=== PATIENT | female | born 1975 | race Caucasian/White ===

== ENCOUNTER 2020-10-14 14:15 | Outpatient (RCR) | payer OTHER, SELFPAY ==
[2020-09-02 14:05] VITALS: BMI 46.4
[2020-09-02 14:10] VITALS: BMI 46.4
== END 2020-12-01 14:33 | disposition home or self-care (01) ==
LOC: ANHDMC 14:15
PROVIDERS: PCP Internal Medicine; Visit Provider Internal Medicine
DX: E11.9 Type 2 diabetes mellitus without complications (principal); Z71.3 Dietary counseling and surveillance; Z71.89 Other specified counseling
CPT/HCPCS: 97802; G0108

== ENCOUNTER 2021-10-23 08:10 | Outpatient (CLI) | payer OTHER, SELFPAY ==
--- NOTE | ~2021-10-23 | MM_ITS ---
EXAMINATION: MM screening isa BI w jacques HISTORY: Screening TECHNIQUE: Craniocaudal and mediolateral oblique 3-D tomosynthesis images were obtained and synthetic 2-D images were generated. CAD analysis was submitted and interpreted. COMPARISON: 02/24/2018 BREAST PARENCHYMAL COMPOSITION: Breast composed of scattered areas of fibroglandular density. FINDINGS: There is no evidence of suspicious mass, calcification, or architectural distortion to sugg est malignancy in either breast. There has been no suspicious interval change. IMPRESSION: 1. No mammographic evidence of malignancy. 2. Recommend routine screening mammography in one year. BI-RADS Category 1: Negative Reviewed, dictated and finalized at location A. AL GEAR GENERATOR
== END 2021-10-23 08:11 | disposition home or self-care (01) ==
LOC: ANHIMG 08:17
PROVIDERS: PCP Internal Medicine; Visit Provider Obstetrics & Gynecology Gynecology
DX: Z12.31 Encounter for screening mammogram for malignant neoplasm of breast (principal)
CPT/HCPCS: 77063; 77067

== ENCOUNTER → 2022-12-09 14:39 | Outpatient (CLI) | payer OTHER, SELFPAY ==
--- NOTE | ~2022-12-09 | XR_ITS ---
EXAMINATION: XR hand LT 2V DATE: 12/09/2022 15:01 INDICATION: Left hand joint pain and swelling. TECHNIQUE: 2 views of left hand were obtained. COMPARISON: None. FINDINGS: Bone alignment is normal. No fracture. There is mild osteoarthritis of first carpal metacar pal joint. At fourth intercarpal phalangeal joint, there are erosions, severe joint space narrowing, and periostitis. There is an erosion of head of third metacarpal. There is mild osteoarthritis of sec ond metacarpophalangeal joint and second distal interphalangeal joint. IMPRESSION: 1. Inflammatory arthritis involving third and fourth metacarpophalangeal joints, consistent with psor iatic arthritis. Reviewed, dictated and finalized at location E. IMPRESSION: 1. Inflammatory arthritis involving third and fourth metacarpophalangeal joints , consistent with psoriatic arthritis.
--- NOTE | ~2022-12-09 | XR_ITS ---
EXAMINATION: XR hand RT 2V DATE: 12/09/2022 15:00 INDICATION: Right hand joint pain and swelling. TECHNIQUE: 2 views of right hand were obtained. COMPARISON: None. FINDINGS: Bone alignment is normal. No fracture. There is mild osteoarthritis of first carpometacarpa l joint. IMPRESSION: 1. Mild osteoarthritis of first carpometacarpal joint. Reviewed, dictated and finalized at location E.
--- NOTE | ~2022-12-09 | XR_ITS ---
EXAMINATION: XR foot LT 2V DATE: 12/09/2022 15:01 INDICATION: Left foot joint pain and swelling. TECHNIQUE: 2 views of left foot were obtained. COMPARISON: None. FINDINGS: Bone alignment is normal. No fracture. There is mild osteoarthritis of first metatarsophala ngeal joint. There is acro-osteolysis involving the francesco of first, third, and fourth distal phalange s. There are erosions of first interphalangeal joint and fourth distal interphalangeal joint. There i s periostitis at the first interphalangeal joint and third and fourth proximal and distal interphalan geal joints. IMPRESSION: 1. Inflammatory arthritis, most likely psoriatic arthritis. Reviewed, dictated and finalized at location E.
--- NOTE | ~2022-12-09 | XR_ITS ---
EXAMINATION: XR foot RT 2V DATE: 12/09/2022 15:00 INDICATION: Right foot joint pain and swelling. TECHNIQUE: 2 views of right foot were obtained. COMPARISON: Right foot radiographs 01/07/2018 FINDINGS: There is moderate hallux valgus. No fracture. There is mild osteoarthritis of first metatar sophalangeal joint and some of the interphalangeal joints. There are enthesophytes at the posterior a nd plantar aspects of calcaneal tuberosity. IMPRESSION: 1. Mild polyarticular osteoarthritis. 2. Moderate hallux valgus. Reviewed, dictated and finalized at location E.
== END ==
PROVIDERS: PCP Family Medicine; Visit Provider Family Medicine
DX: M79.89 Other specified soft tissue disorders (principal); M19.042 Primary osteoarthritis, left hand; M19.071 Primary osteoarthritis, right ankle and foot; M19.072 Primary osteoarthritis, left ankle and foot
CPT/HCPCS: 73120; 73620

== ENCOUNTER 2023-12-28 15:46 | Outpatient (CLI) | payer OTHER, SELFPAY ==
--- NOTE | ~2023-12-28 | MM_ITS ---
EXAMINATION: MM screening isa BI w jacques HISTORY: Screening mammogram TECHNIQUE: Craniocaudal and mediolateral oblique 3-D tomosynthesis images were obtained and synthetic 2-D images were generated. CAD analysis was submitted and interpreted. COMPARISON: 10/23/2021, 02/24/2018 bilateral screening mammogram examinations BREAST PARENCHYMAL COMPOSITION: There are scattered areas of fibroglandular density. FINDINGS: There is no evidence of suspicious mass, calcification, or architectural distortion to sugg est malignancy in either breast. There has been no suspicious interval change. IMPRESSION: 1. No mammographic evidence of malignancy. 2. Recommend routine screening mammography in one year. BI-RADS Category 1: Negative Reviewed, dictated and finalized at location B.
== END 2023-12-28 15:47 ==
PROVIDERS: PCP Obstetrics & Gynecology Gynecology; Visit Provider Obstetrics & Gynecology Gynecology
DX: Z12.31 Encounter for screening mammogram for malignant neoplasm of breast (principal)
CPT/HCPCS: 77063; 77067

== ENCOUNTER 2024-08-17 10:26 | Outpatient (CLI) | payer OTHER, SELFPAY ==
[2024-08-17 14:34] LABS: Basophils Percent Auto 0.7 % (0.2-1.2); Eosinophils Absolute Auto 0.1 K/mm3 (0-0.3); Eosinophils Percent Auto 1.5 % (0-4.4); Hematocrit 42.3 % (37.0-47.0); Hemoglobin 13.9 g/dL (12.0-15.0); Immature Granulocyte Absolute 0.01 K/mm3 (0.00-0.031); Immature Granulocyte Percent A 0.2 % (0-0.5); Lymphocytes Absolute Auto 2.02 K/mm3 (0.9-3.2); Lymphocytes Percent Auto 44.6 % (18.3-44.2); Mean Corpuscular HGB Conc 32.9 g/dl (32-36); Mean Corpuscular Hemoglobin 28.3 pg (26-34); Mean Platelet Volume 10.7 fl (7.4-10.4); Monocytes Absolute Auto 0.3 K/mm3 (0.1-0.6); Monocytes Percent Auto 6.6 % (2.6-8.5); Neutrophils Absolute Auto 2.1 K/mm3 (1.3-6.7); Neutrophils Percent Auto 46.4 % (45.5-73.1); Platelet Count Result 177 k/mm3 (150-375); Red Blood Count 4.92 M/mm3 (4.2-5.4); Red Cell Distribution Width 14.3 % (11.5-14.5); White Blood Count 4.5 K/mm3 (4.5-10.0)
[2024-08-17 15:27] LABS: Creatinine Urine 259.3 mg/dL
[2024-08-17 15:35] LABS: MALB Creatinine Ratio 19.6 mg/g (0-30); Microalbumin Urine Random 50.7 mg/L (0-16.7)
[2024-08-17 16:09] LABS: Alanine Aminotransferase 79 U/L (6-35); Albumin Level 4.2 g/dL (3.5-5.1); Alkaline Phosphatase 116 U/L (38-126); Anion Gap 4 mmol/L (4-12); Aspartate Amino Transferase 104 U/L (14-36); Bilirubin,Total 0.8 mg/dL (0.2-1.3); Blood Urea Nitrogen 10 mg/dL (7-17); Calcium 9.2 mg/dL (8.4-10.2); Carbon Dioxide 28 mmol/L (22-30); Chloride 102 mmol/L (98-107); Cholesterol 191 mg/dL (0-200); Estimated Glomerular Filt Rate > 60; Glucose 123 mg/dL (65-110); HDL Direct 74 mg/dL; Potassium 3.8 mmol/L (3.4-5.0); Sodium 134 mmol/L (137-145); Triglycerides 205 mg/dL (<150)
[2024-08-17 16:20] LABS: LDL Cholesterol Direct 66 mg/dL
== END 2024-08-17 10:27 | disposition home or self-care (01) ==
LOC: ANHGOSHLAB 10:27
PROVIDERS: PCP Family Medicine; Visit Provider Family Medicine
DX: E78.2 Mixed hyperlipidemia (principal); E11.9 Type 2 diabetes mellitus without complications; R53.83 Other fatigue; Z13.228 Encounter for screening for other metabolic disorders
CPT/HCPCS: 36415; 80053; 80061; 82043; 83036; 85025

== ENCOUNTER 2025-04-01 01:43 | Day surgery (SDC) | payer OTHER, SELFPAY ==
[2025-01-29 09:59] VITALS: BMI 46.0
--- NOTE | 2025-02-11 09:50 | SUR.PREOP ---
Patient called at 920 saying she didn't think she was cleaned out still having brown liquid stool. Discussed her going to get more laxatives and coming in later today for procedure or we could reschedule her and have her do 2 day prep. She said she would like to try doing some additional laxatives and then come in a little later today. Patient called back at 0950 and said she wanted to just reschedule and do a 2 day prep. We discussed the 2 day prep and I told her we would email her the instructions. Patient moved to Apr 01 at 1300,
[2025-03-15 12:05] VITALS: BMI 47.8
--- OUTSIDE RECORDS SUMMARY | 2025-04-01 01:45 | XMS_ITS | Encounter Summary ---
Author Organization [facility] Address [address] [place] [id number] Care Team Providers Care Senior Etl Developer Name Role Phone Kyle Edwards DO Primary Care Provider [phone] Encounter Details Date Type Department Care Team ([facility] st Contact Info) Description 03/25/2025 Results Follow-Up [facility] [place] [id number] [place] [address] Lakeisha John NP [address] [address] Urine culture Urine, clean voided Social History Tobacco Use Types Packs/Day Years Used Date Smoking Tobacco: Never AUDIT-C Answer Date Recorded Q1: How often do you have a drink containing alcohol? Monthly or less 09/17/2024 Q2: How many drinks containi ng alcohol do you have on a typical day when you are drinking? Patient does not drink Frequency of Binge Drinking Not on file 10/2024 Comments Unknown Sex and Gender Information Value Date Recorded Sex Assigned at Not on file Legal Sex Female 1:38 PM CDT Gender Identity Not on file Sexual Orientation Not on file documented as of this encounter Plan of Treatment Not on file documented as of this encounter Visit Diagnoses Not on filedocumented in this encounter Care Teams Senior Etl Developer Relationship Specialty Start Date End Date Kyle Edwards DO PCP - General Family Medicine 02/04/23 documented as of this encounter
--- OUTSIDE RECORDS SUMMARY | 2025-04-01 01:46 | XMS_ITS | Patient Health Record ---
Author Organization [facility] Address [address] [facility] [address] [place] [address] Care Team Providers Care Triple Air Valve Tester Name Role Phone Satnam Espinoza Unavailable [phone] Reason For Referral No Information Medications Medication SIG (Take, Route, Frequency, Duration) Notes Start Date End Date Status busPIRone HCl 5 MG Oral 03/02/2019 Active Levothyroxine Sodium 50 MCG Oral 03/02/2019 Active Tri-Sprintec 0.18/0.215/0.25 MG-35 MCG Oral 03/02/2019 Active LORazepam 0.5 MG Oral 03/02/2019 Ac tive Triamcinolone Acetonide 0.1% External 03/02/2019 Active Sertraline HCl 100 MG Oral 03/02/2019 Active hydrOXYzine HCl 25 MG Oral 03/02/2019 Active Lovastatin 20 MG Oral 03/02/2019 Ac tive amLODIPine Besylate 10 MG Oral 03/02/2019 Active Plan Of Treatment No Information Insurance Providers Payer Name Payer Address Payer Phone Subscriber Number Group Number Insured Name Patient Relationship to Insured Coverage Start Date Coverage End Date [employer] [address] [place] [address] [id number] THONY [id number] Self - patient is the insured
--- OUTSIDE RECORDS SUMMARY | 2025-04-01 01:46 | XMS_ITS | Clinical Summary ---
Author Organization [facility] Care Team Providers Care [employer] Radio Technician Name Role Phone Kyle Edwards DO Primary Care Provider [phone] Allergies Active Allergy Reactions Criticality Noted Date Comments Hydrocodone-Acetaminophen Vomiting Low 05/30/2023 Medications amLODIPine (NORVASC) 10 mg tablet Take 1 tablet (10 mg total) by mouth daily 3 Active lovastatin (MEVACOR) 20 mg tablet Take 1 tablet (20 mg total) by mouth daily 3 Active metFORMIN (GLUCOPHAGE) 500 mg tablet Take 1 tablet (500 mg total) by mouth 2 (two) times a day 3 Active sertraline (ZOLOFT) 100 mg tablet Take 2 tablets (200 mg total) by mouth daily 3 Active ergocalciferol (VITAMIN D) 50,000 unit capsule TAKE 1 CAPSULE BY MOUTH ONCE WEEKLY 16 capsule 4 Active methotrexate 2.5 mg tabletIndication s:Other - non-oncology Take 6 tablets (15 mg total) by mouth once a week Take Tuesday night after dinner, weekly 24 tablet 3 4 Active Mounjaro 2.5 mg/0.5 mL pen injector 0.5 mL (2.5 mg total) 4 Active folic acid (FOLVITE) 1 mg tablet Take 1 tablet (1 mg total) by mouth daily 90 tablet 1 4 Active busPIRone (BUSPAR) 5 mg tablet 5 Active lamoTRIgine (LaMICtal) 200 mg tablet Take 1 tablet (200 mg total) by mouth daily Active adalimumab-adaz (Hyrimoz,CF, Pen) 40 mg/0.4 mL pen injector Inject 40 mg under the skin every 14 (fourteen) days 2.4 mL 4 5 Active methotrexate 2.5 mg tabletIndication s:Other - non-oncology Take 6 tablets (15 mg total) by mouth once a week 72 tablet 1 5 Active folic acid (FOLVITE) 1 mg tablet Take 1 tablet (1 mg total) by mouth daily 30 tablet 3 5 Active nitrofurantoin monohydrate (MACROBID) 100 mg capsule Take 1 capsule (100 mg total) by mouth 2 (two) times a day for 5 days 10 capsule 5 03/28/20 25 Active Problems No known active problems Encounters Date Type Department Care Team Description 03/25/2025 Results Follow-Up [facility] at [address] [phone] Lakeisha John NP Urine culture Urine, clean voided 03/23/2025 4:15 PM CDT Office Visit [facility] at [address] [phone] Latasha Yancey PA Acute cystitis with hematuria (Primary Dx) 03/23/2025 2:04 PM CDT - 03/23/2025 11:59 PM CDT Hospital Encounter [address] [address] Acute cystitis with hematuria Discharge Disposition: Discharge to home or self care 02/18/2025 3:45 PM CDT Lab [facility] at [address] [phone] Psoriatic arthritis (HCC); High risk medication use 02/18/2025 3:00 PM CDT Office Visit [facility] [address] [place] [address] Medical Office Building [address] [place] [address] Crys Mendoza MD Psoriatic arthritis (HCC) (Primary Dx); High risk medication use from Last 3 Months Immunizations Immunization Administration Dates Next Due Influenza, Quadrivalent, Fiordaliza l Culture-based MDCK, Preservative Free, Antibiotic Free, Intramuscular 05/30/2023 Medical History Medical History Date Comments Diabetes (HCC) Anxiety Hypertension Hyperlipidemia Social History Tobacco Use Types Packs/Day Years Used Date Smoking Tobacco: Never Tobacco Cessation:Counseling Given: Not Answered AUDIT-C Answer Date Recorded Q1: How often [...] on file Sexual Orientation Not on file Obstetrics History Last Filed Vital Signs Vital Sign Reading Time Taken Comments Blood Pressure 144/83 03/23/2025 2:37 PM CDT Pulse 100 03/23/2025 2:37 PM CDT Temperature 36.9 C (98.5 F) 03/23/2025 2:37 PM CDT Respiratory Rate 20 03/23/2025 2:37 PM CDT Oxygen Saturation 96% 03/23/2025 2:37 PM CDT Inhaled Oxygen Concentration - - Weight 126.1 kg (278 lb) 03/23/2025 2:37 PM CDT Height 160 cm (5' 3) 02/18/2025 3:13 PM CDT Body Mass Index 49.25 02/18/2025 3:13 PM CDT Plan of Treatment Health Maintenance Due Date Last Done Comments Breast Cancer Screening-Mammogram 1976 Cervical Cancer Screening 1976 Colon Cancer Screening-Colonoscopy 1976 Depression Screening 1976 Hepatitis C Screening 1976 DTaP/Tdap/Td Vaccine (1 - Tdap) 11/05/1987 Hepatitis B Screening 1994 Regular Well Visit/Exam 18-64 1994 Pneumococcal vaccine <65 (1 of 2 - PCV) 11/05/1995 Zoster Vaccine (1 of 2) 11/05/1995 Covid-19 Vaccine ( - season) 2024 07/29/2021, 11/11/2020, 10/13/2020 Influenza Vaccine (#1) 2025 05/30/2023 Procedures Procedure Name Priority Date/Time Associated Diagnosis Comments URINE CULTURE Routine 03/23/2025 2:42 PM CDT Acute cystitis with hematuria POCT URINALYSIS DIPSTICK Routine 03/23/2025 2:05 PM CDT Acute cystitis with hematuria EGFR Routine 02/18/2025 3:43 PM CDT Psoriatic arthritis (HCC) High risk medication use DIFFERENTIAL AUTO Routine 02/18/2025 3:4 3 PM CDT Psoriatic arthritis (HCC) High risk medication use CBC WITH AUTO DIFFERENTIAL Routine 02/18/2025 3:43 PM CDT Psoriatic arthritis (HCC) High risk medication use COMPREHENSIVE METABOLIC PANEL Routine 02/18/2025 3:43 PM CDT Psoriatic arthritis (HCC) High risk medication use T-SPOT.TB Routine 02/18/2025 3:43 PM CDT Psoriatic arthritis (HCC) High risk medication use from Last 3 Months Results * (ABNORMAL) Urine culture Urine, clean voided (03/23/2025 2:42 PM CDT) Report Final Report: Greater than or equal to 100,000 colonies/mL of Escherichia coli Plus growth of clinically insignificant bacterial bisi. (.) Comment:Testing performed by : [facility], [address] [place] [address] Organism [facility] PLUS GROWTH OF CLINICALLY INSIGNIFICANT BISI. MEGGAN Urine, clean voided 03/23/2025 2:42 PM CDT 03/23/2025 8:16 PM CDT Narrative MEGGAN - 03/25/2025 8:24 AM CDT Testing performed by [facility] ([phone]) Organism Antibiotic Method Susceptibility Escherichia coli Ampicillin INTERPRETATION Susceptible Escherichia coli Cefazolin INTERPRETATION Susceptible Escherichia coli Nitrofurantoin INTERPRETATION Susceptible Escherichia coli Gentamicin INTERPRETATION Susceptible Escherichia coli Trimethoprim with Sulfamethoxazole IN TERPRETATION Susceptible Escherichia coli Meropenem INTERPRETATION Susceptible Escherichia coli Cefepime INTERPRETATION Susceptible Escherichia coli Ciprofloxacin INTERPRETATION Susceptible Escherichia coli Ceftazidime INTERPRETATION Susceptible Escherichia coli Ceftriaxone INTERPRETATION Susceptible Escherichia coli Piperacillin/Tazobactam INTERPRETATIO N Susceptible Escherichia coli Cephalexin INTERPRETATION Susceptible Escherichia coli Cefuroxime-axetil INTERPRETATION Susceptible Escherichia coli Cefdinir INTERPRETATION Susceptible Latasha VICK LAB MICROBIOLOGY - GENER AL ORDERABLES Final Result MEGGAN ESTEBAN [address] Department [place] [address] * (ABNORMAL) POCT urinalysis dipstick (03/23/2025 2:05 PM CDT) Pathologist [facility] Color, Urine, POC Yellow Clarity, ur, POC Clear Clear Glucose, ur, POC Negative Negative Bilirubin, ur, POC Negative Negative Ketones, ur, POC Negative Negative Specific [place], POC 1.025 1.003 - 1.030 Blood, ur, POC Large(A) Negative pH, ur, POC 6.0 5.0 - 8.0 Protein, ur, POC 300.(A) Negative Urobilinogen, urine, POC 1.0 0.2 - 1.0 mg/dL Nitrite, ur, POC Positive(A) Negative Leukocytes, ur, POC Trace(A) Negative Lot Number [id number] Urine 03/23/2025 2:05 PM CDT Latasha VICK POINT OF CARE TEST ORDER AMANDA Final Result * T-SPOT.TB Blood (02/18/2025 3:43 PM CDT) Pathologist [facility] T-SPOT.TB Negative SeeBelow Comment: Normal Value: Negative A negative test result does not exclude the possibility of exposure to or infection with Mycobacterium tuberculosis (M. tuberculosis). Patients with recent exposure to TB infected individuals exhibiting a negative T-SPOT.TB result should be considered for retesting within 6 weeks or if other relevant clinical symptoms indicate. Results from T-SPOT.TB testing must be used in conjunction with each individual's epidemiological history, current medical status, and results of other diagnostic evaluations. The T-SPOT.TB test is qualitative and results are reported as positive, borderline or negative, given that the test controls perform as expected. In line with the Centers for Disease Control and Prevention's 2010 recommendation to report quantitative measurements alongside the qualitative result, the laboratory provides spot counts for informational purposes only. The T-SPOT.TB test should not be interpreted as a quantitative test. Testing performed by: [facility], [address], [place] [address] T-SPOT.TB Panel A Spot Count 0 CERNER BJW Comment:Testing performed by : [facility], [address], [place] [address] T-SPOT.TB Panel B Spot Count 0 CERNER BJWCH Comment:Testing performed by : [facility], [address], [place] [address] T-SPOT.TB Negative Control Passed CERNER BJWCH Comment:Testing performed by : [facility], [address], [place] [address] T-SPOT.TB Positive Control Passed CERNER BJWCH Comment: Test Performed at: [email or web address], [employer] [address] [place] [phone] CHESTER CHAMORRO,PHD Testing performed by: [facility], [address], [place] [address] Blood 02/18/2025 3:43 PM CDT 02/18/2025 4:03 PM CDT us Crys Mendoza MD LAB MICROBIOLOGY - GENERAL ORDERABLES Final Result [facility] [address] [place] [address] * eGFR (02/18/2025 3:43 PM CDT) eGFR 84 >=60 mL/min/1. 73 m2 Comment: Interpretive Data Reference Interval Normal >/= 90 mL/min/1.73m2 Mildly decreased* 60 - 89 mL/min/1.73m2 Mildly to moderately decreased 45 - 59 mL/min/1.73m2 Moderately to severely decreased 30 - 44 mL/min/1.73m2 Severely decreased 15 - 29 mL/min/1.73m2 Kidney Failure < 15 mL/min/1.73m2 *Relative to young adult level Estimated glomerular filtration rate is determined by the 2020 CKD-EPI equation recommended by the National Kidney Foundation (A Unifying Approach to GFR Estimation: Recommendations of the NKF-ASK Task Force on Reassessing the Inclusion of Race in Diagnosing Kidney Disease, JASN 2020). The CKD-EPI equation should not be used for patients with unstable renal function and has not been validated in children and those over 70. Current interpretive data was last reviewed 2021. Testing performed by: [facility], [address] [place] [address] Blood 02/18/2025 3:43 PM CDT 02/18/2025 4:03 PM CDT Crys Mendoza MD LAB BLOOD ORDERABLES Final Result [facility] [address] [place] [address] * Differential, auto (02/18/2025 3:43 PM CDT) Neutrophil abs 1.66 1.50 - 6.50 K/cumm Comment:Testing performed by : [facility], [facility], [address] [place] [address] Imm gran abs 0.00 0.00 - 0.10 K/cumm [facility] Comment:Testing performed by : [facility], [facility], [address] [place] [address] Lymphocyte abs 2.18 0.80 - 3.30 K/cumm MEGGAN AMATO Comment:Testing performed by : [facility], [facility], [address] [place] [address] Monocyte abs 0.45 0.20 - 0.80 K/cumm CERNER BJWCH Comment:Testing performed by : [facility], [facility], [address] [place] [address] Eosinophil abs 0.08 0.00 - 0.50 K/cumm CERNER BJWCH Comment:Testing performed by : [facility], [facility], [address] [place] [address] Basophil abs 0.02 0.00 - 0.10 K/cumm CERNER BJWCH Comment:Testing performed by : [facility], [facility], [address] [place] [address] Neutrophil pct 37.7 % CERNER BJWCH Comment: Interpretive Data Percent cell count reference ranges are not reported, since discordance with absolute values may lead to misinterpretation of CBC data. Current Interpretive Data was last revised on 2017. Testing performed by: [facility], [facility], [address] [place] [address] Imm gran pct 0.0 % CERNER BJWCH Comment: Interpretive Data Percent cell count reference ranges are not reported, since discordance with absolute values may lead to misinterpretation of CBC data. Current Interpretive Data was last revised on 2017. Testing performed by: [facility], [facility], [address] [place] [address] Lymphocyte pct 49.7 % CERNER BJWCH Comment: Interpretive Data Percent cell count reference ranges are not reported, since discordance with absolute values may lead to misinterpretation of CBC data. Current Interpretive Data was last revised on 2017. Testing performed by: [facility], [facility], [address] [place] [address] Monocyte pct 10.3 % CERNER BJWCH Comment: Interpretive Data Percent cell count reference ranges are not reported, since discordance with absolute values may lead to misinterpretation of CBC data. Current Interpretive Data was last revised on 2017. Testing performed by: [facility], [facility], [address] [place] [address] Eosinophil pct 1.8 % CERNER BJWCH Comment: Interpretive Data Percent cell count reference ranges are not reported, since discordance with absolute values may lead to misinterpretation of CBC data. Current Interpretive Data was last revised on 2017. Testing performed by: [facility], [address] [place] [address] Basophil pct 0.5 % MEGGAN AMATO Comment: Interpretive Data Percent cell count reference ranges are not reported, since discordance with absolute values may lead to misinterpretation of CBC data. Current Interpretive Data was last revised on 2017. Testing performed by: [place] [address], [address] [place] [address] Blood 02/18/2025 3:43 PM CDT 02/18/2025 3:45 PM CDT us Crys Mendoza MD LAB BLOOD ORDERABLES Final Result Performing Organization Address City/State/[facility] Co de Phone Number MEGGAN AMATO [address] [facility]. [place] [address] * (ABNORMAL) CBC with auto differential (02/18/2025 3:43 PM CDT) WBC 4.39 3.80 - 9.90 K/cumm Comment:Testing performed by : [address] [place] [address] Hgb 12.6 11.9 - 15.5 g/dL MEGGAN AMATO Comment:Testing performed by : [facility], [address] [place] [address] Hct 38.4 35.6 - 45.5 % MEGGAN AMATO Comment:Testing performed by : [place] [address], [address] [place] [address] Plt 139(L) 150 - 400 K/cumm MEGGAN AMATO Comment:Testing performed by : [place] [address], [address] [place] [address] MPV 10.2 9.1 - 12.3 fL CERNER BJWCH Comment:Testing performed by : [facility], [facility], [address] [place] [address] RBC 4.65 3.90 - 5.20 M/cumm CERNER BJWCH Comment:Testing performed by : [facility], [facility], [address] [place] [address] MCV 82.6 81.3 - 96.4 fL CERNER BJWCH Comment:Testing performed by : [place] [address], [address] [place] [address] MCH 27.1 27.1 - 33.3 pg CERNER BJWCH Comment:Testing performed by : [facility], [facility], [address] [place] [address] MCHC 32.8 32.3 - 35.7 g/dL CERNER BJWCH Comment:Testing performed by : [place] [address], [address] [place] [address] RDW CV 13.1 11.1 - 14.9 % CERNER BJWCH Comment:Testing performed by : [place] [address], [address] [place] [address] RDW SD 39.2 35.7 - 48.1 fL CERNER BJWCH Comment:Testing performed by : [place] [address], [address] [place] [address] ANC Prelim 1.66 1.50 - 6.50 K/cumm CERNER BJWCH Comment: Interpretive Data The rapid ANC is a preliminary automated count and may vary from the final ANC (Neut Abs) reported in the WBC differential that follows. Current interpretive data was last revised 2024. Testing performed by: [facility], [address] [place] [address] Blood 02/18/2025 3:43 PM CDT 02/18/2025 3:45 PM CDT us Crys Mendoza MD LAB BLOOD ORDERABLES Final Result [facility] [address] [place] [address] * Comprehensive metabolic panel (02/18/2025 3:43 PM CDT) Sodium 136 135 - 145 mmol/L Comment:Testing performed by : [facility], [address], [place] [address] Potassium, pl 3.9 3.3 - 4.9 mmol/L CERMARK BJWCH Comment:Testing performed by : [facility], [address], [place] [address] Chloride 100 97 - 110 mmol/L CERMARK BJCH Comment:Testing performed by : [facility], [address], [place] [address] CO2 24 22 - 32 mmol/L CERMARK BJWCH Comment:Testing performed by : [facility], [address], [place] [address] Anion gap 12 2 - 15 mmol/L CERMARK BJCH Comment:Testing performed by : [facility], [address], [place] [address] BUN 10 6 - 25 mg/dL CERMARK BJWCH Comment:Testing performed by : [facility], [address], [place] [address] Creatinine 0.85 0.60 - 1.10 mg/dL CERNER BJWCH Comment:Testing performed by : [facility], [address], [place] [address] Glucose 94 70 - 199 mg/dL CERNER BJWCH Comment: Interpretive Data Fasting glucose >/= 126 mg/dl is diagnostic for diabetes. Fasting is defined as no caloric intake for at least 8 hours. Fasting glucose between 100 mg/dl to 125 mg/dl is diagnostic of prediabetes. In a patient with classic symptoms of hyperglycemia or hyperglycemic crisis, a random glucose >/= 200 mg/dl is diagnostic for diabetes. In the absence of unequivocal hyperglycemia, results should be confirmed by repeat testing. The classification and Diagnosis of Diabetes Diabetes Care 2022; 46: S19-S40. Current interpretive data was last revised 2022. Testing performed by: [facility], [address], [place] [address] Calcium 9.0 8.5 - 10.3 mg/dL CERNER BJWCH Comment:Testing performed by : [facility], [address], [place] [address] Bilirubin, total 0.2 0.1 - 1.2 mg/dL CERNER BJWCH Comment:Testing performed by : [facility], [address], [place] [address] Protein, pl 7.1 6.5 - 8.5 g/dL CERNER BJWCH Comment:Testing performed by : [facility], [address], [place] [address] Albumin 3.7 3.5 - 5.0 g/dL CERNER BJWCH Comment:Testing performed by : [facility], [address], [place] [address] Alk phos 120 40 - 130 Units/L CERNER BJWCH Comment:Testing performed by : [facility], [address], [place] [address] ALT 30 7 - 45 Units/L CERNER BJWCH Comment:Testing performed by : [facility], [address], [place] [address] AST 38 10 - 45 Units/L CERNER BJWCH Comment:Testing performed by : [facility], [address], [place] [address] Blood 02/18/2025 3:43 PM CDT 02/18/2025 4:03 PM CDT us Crys Mendoza MD LAB BLOOD ORDERABLES Final Result MEGGAN [facility] [address] [place] [address] from Last 3 Months Insurance Care Teams [employer] Radio Techn[employer] Relationship Specialty Start Date End Date Kyle Edwards DO PCP - General Family Medicine 02/04/23
[2025-04-01 11:51] VITALS: BMI 48.3
[2025-04-01 11:56] LABS: BEDSIDEPREGUCG Negative (Negative)
--- NOTE | 2025-04-01 11:57 | P.PNAN_ITS ---
Anes - Initial Pre Proc Eval Procedure: Operation Date: 04/01/25 13:00 Proposed Procedures p Screening Colonoscopy - Brian Smith MD Date/Time: 04/01/25 11:57 Surgeon: Brian Smith MD Pre Op Diagnosis: Encounter for screening for malignant neoplasm of Patient Data Age: 49 Gender: F Height: 1.6 m Weight: 123.8 kg Allergies Allergy/AdvReac Type Severity Reaction Status Date / Time acetaminophen Allergy Unknown VOMITING Verified 04/01/25 11:48 hydrocodone Allergy Unknown VOMITING Verified 04/01/25 11:48 Home Medications ?Medication ?Instructions ?Recorded ?Confirmed ?Type lancets 23 gauge (Comfort EZ #100 ea 07/15/20 10/24/24 Rx Lancets) adalimumab-adaz 40 mg/0.8 mL See Rx Instructions subcut .COMPLEX 03/02/24 01/29/25 History subcutaneous pen injector (Hyrimoz Pen) lorazepam 0.5 mg tablet 0.5 mg PO TID PRN anxiety #90 tabs 06/04/24 01/29/25 Rx amlodipine 10 mg tablet 10 mg PO DAILY #90 tabs 06/06/24 04/01/25 Rx tirzepatide 7.5 mg/0.5 mL 7.5 mg (0.5 mL) subcut WEEKLY #2 mL 07/25/24 01/29/25 Rx subcutaneous pen injector blood sugar diagnostic (Accu-Chek #100 ea 07/26/24 10/24/24 Rx Guide test strips) blood-glucose meter (Accu-Chek #1 ea 07/26/24 10/24/24 Rx Guide Glucose Meter) buspirone 10 mg tablet 10 mg PO BID #180 tabs 10/24/24 04/01/25 Rx folic acid 1 mg tablet 1 mg PO DAILY 10/24/24 04/01/25 History methotrexate 2.5 mg/mL oral 2.5 mg PO WEEKLY 10/24/24 01/29/25 History solution silver sulfadiazine 1 % topical 1 applic topical BID #85 grams 10/24/24 01/29/25 Rx cream (Silvadene) lovastatin 20 mg tablet 20 mg PO DAILY #90 tabs 11/29/24 04/01/25 Rx metformin 500 mg tablet 500 mg PO BID #180 tabs 11/29/24 04/01/25 Rx sertraline 100 mg tablet 200 mg (2 x 100 mg) PO DAILY #180 11/29/24 01/29/25 Rx tabs Laboratory Tests 04/01/25 04/01/25 11:41 11:51 POC Capillary Glucose 117 H mg/dl (65-105) POC Urine HCG, Qual Negative (Negative) Patient hx anesthesia problems: none Family hx anesthesia problems: none Results Review: All pre-operative results and documents have been reviewed as part of the pre- operative evaluation. [facility] Past Medical History Medical History (Updated 04/01/25 @ 11:57 by Regino Roman MD) Type 2 diabetes mellitus Essential (primary) hypertension Mixed hyperlipidemia Morbid obesity Social History Social History Smoking status: Never smoker Second hand tobacco smoke exposure: No Alcohol intake: never Substance use: never Substance use type: does not use Do You Feel Safe in your Home?: Yes Lack of Transportation: No Lack of Food: Never True Current Housing: I Have Housing Concerned About Future Housing: No Difficulty Paying Gas/Electric Bills: No Difficulty Paying for Meds: No Currently Unemployed: No Education: Decline to Answer Difficulty w/ Childcare or Family Care: No Living arrangements: with family Occupation/Education: occupation Gender identity (if verbalized by the patient): Female Spiritual care concerns: No Anes - Eval Final PreProcedure Day of Procedure 04/01/25 11:57 Patient weight: morbidly obese Heart: regular rate and rhythm Lungs: clear to auscultation Airway: Mallampati scale class II Neurological: alert and oriented Last oral intake: >/= 8 hours ASA classification: III Emergent: no Anesthetic plan: proceed Anesthesia type and monitoring: general GIVS and standard monitoring Results Review: All pre-operative results and documents have been reviewed as part of the pre-operative evaluation. Informed Consent: The patient's anesthetic plan and its attendant risks and benefits were discussed with the patient/family/POA. Questions were solicited and answers provided to the satisfaction of the patient/family/POA.
[2025-04-01] MEDS: LACTATED RINGERS 1,000 ML 150 ML IV CONT (12:00)
--- NOTE | 2025-04-01 12:34 | P.HP_ITS ---
H&P: HPI History of Present Illness Date/Time: 04/01/25 12:34 Chief Complaint: Screening colonoscopy Narrative: This is the patient's first colonoscopy. There are no GI symptoms and there is no family history of colorectal cancer. Review of Systems Review of Systems: All systems reviewed & are unremarkable except as noted in HPI and below PMFSH Past Medical History Medical History (Updated 04/01/25 @ 12:35 by Brian Smith MD) Type 2 diabetes mellitus Essential (primary) hypertension Mixed hyperlipidemia Morbid obesity Social History Social History Smoking status: Never smoker Second hand tobacco smoke exposure: No Alcohol intake: never Substance use: never Substance use type: does not use Do You Feel Safe in your Home?: Yes Lack of Transportation: No Lack of Food: Never True Current Housing: I Have Housing Concerned About Future Housing: No Difficulty Paying Gas/Electric Bills: No Difficulty Paying for Meds: No Currently Unemployed: No Education: Decline to Answer Difficulty w/ Childcare or Family Care: No Living arrangements: with family Occupation/Education: occupation Gender identity (if verbalized by the patient): Female Spiritual care concerns: No Meds Home Medications and Allergies Home Medications ?Medication ?Instructions ?Recorded ?Confirmed ?Type lancets 23 gauge (Comfort EZ #100 ea 07/15/20 10/24/24 Rx Lancets) adalimumab-adaz 40 mg/0.8 mL See Rx Instructions subcut .COMPLEX 03/02/24 01/29/25 History subcutaneous pen injector (Hyrimoz Pen) lorazepam 0.5 mg tablet 0.5 mg PO TID PRN anxiety #90 tabs 06/04/24 01/29/25 Rx amlodipine 10 mg tablet 10 mg PO DAILY #90 tabs 06/06/24 04/01/25 Rx tirzepatide 7.5 mg/0.5 mL 7.5 mg (0.5 mL) subcut WEEKLY #2 mL 07/25/24 01/29/25 Rx subcutaneous pen injector blood sugar diagnostic (Accu-Chek #100 ea 07/26/24 10/24/24 Rx Guide test strips) blood-glucose meter (Accu-Chek #1 ea 07/26/24 10/24/24 Rx Guide Glucose Meter) buspirone 10 mg tablet 10 mg PO BID #180 tabs 10/24/24 04/01/25 Rx folic acid 1 mg tablet 1 mg PO DAILY 10/24/24 04/01/25 History methotrexate 2.5 mg/mL oral 2.5 mg PO WEEKLY 10/24/24 01/29/25 History solution silver sulfadiazine 1 % topical 1 applic topical BID #85 grams 10/24/24 01/29/25 Rx cream (Silvadene) lovastatin 20 mg tablet 20 mg PO DAILY #90 tabs 11/29/24 04/01/25 Rx metformin 500 mg tablet 500 mg PO BID #180 tabs 11/29/24 04/01/25 Rx sertraline 100 mg tablet 200 mg (2 x 100 mg) PO DAILY #180 11/29/24 01/29/25 Rx tabs Allergies Allergy/AdvReac Type Severity Reaction Status Date / Time acetaminophen Allergy Unknown VOMITING Verified 04/01/25 11:48 hydrocodone Allergy Unknown VOMITING Verified 04/01/25 11:48 Exam Const: General: cooperative and healthy appearing Resp: Effort & Inspection: normal respiratory effort and able to speak in complete sentences Auscultation: clear to auscultation bilaterally Cardio: Rate: regular rate Rhythm: regular rhythm GI: Inspection: normal to inspection GI Palp: No No hepatosplenomegaly present Auscultation: normal bowel sounds Rectal Exam: deferred Skin: General skin exam: normal color Psych: Appearance: grossly normal Mental Status: mental status grossly no rmal Assessment and Plan Assessment and plan (1) Encounter for screening colonoscopy: Code(s): Z12.11 - Encounter for screening for malignant neoplasm of colon Status: Acute Assessment and Plan: The patient is deemed a good candidate for the procedure. Consent signed. Will proceed.
--- NOTE | 2025-04-01 13:18 | S_PTH ---
PATIENT: Michelle Bear LOC: [facility] U#:[id number] AGE/SX: 49/F ROOM: RE04/01/[address]: Brian Smith MD : 1975 BED: DIS: 04/01/2025 SPEC #: [id number] RECD: 04/01/25 13:40 STATUS: ARTEMIO REQ #: [id number] AMBROSE: 04/01/25 13:[address]: Brian Smith DEPT: [facility] Surgical RECD BY: James Rodriguez ENTERED: 04/01/25 13:41 SP TYPE: Surgical OTHR DR: Ara Carlson, Tissues: A - Colon Polypectomy Procedures: Hematoxylin and Eosin Stain Gross and Microscopic Level 4
[2025-04-01 13:19] VITALS: BP 128/78; PULSE 95; RESP 16; O2SAT 99
[2025-04-01 13:29] VITALS: BP 118/69; PULSE 88; RESP 16; O2SAT 99
[2025-04-01 13:39] VITALS: BP 128/59; PULSE 86; RESP 16; O2SAT 98
== END 2025-04-01 13:49 | disposition home or self-care (01) ==
PROVIDERS: Anesthesiology; PCP Family Medicine; Referring Provider Family Medicine; Visit Provider Internal Medicine Gastroenterology
PROC: 0DJD8ZZ Inspection of Lower Intestinal Tract, Via Natural or Artificial Opening Endoscopic (ICD-10-PCS; CPT 45378; principal; 2025-04-01 13:00)
DX: Z12.11 Encounter for screening for malignant neoplasm of colon (principal); D12.3 Benign neoplasm of transverse colon; K63.5 Polyp of colon; E11.9 Type 2 diabetes mellitus without complications; I10 Essential (primary) hypertension; E78.5 Hyperlipidemia, unspecified; E66.01 Morbid (severe) obesity due to excess calories; Z68.42 Body mass index [BMI] 45.0-49.9, adult; Z79.620 Long term (current) use of immunosuppressive biologic; Z79.85 Long-term (current) use of injectable non-insulin antidiabetic drugs; Z79.84 Long term (current) use of oral hypoglycemic drugs
CPT/HCPCS: 45385; 82948; 88305; J2003; J2704; J7120

== ENCOUNTER 2025-05-25 08:52 | Emergency (ER) | payer OTHER, SELFPAY ==
[2025-05-25 09:01] VITALS: BP 166/88; PULSE 123; RESP 16; TEMP 36.6; O2SAT 98
--- NOTE | 2025-05-25 09:16 | ED_ITS ---
HPI - URI/Sore Throat General Chief Complaint: Upper Respiratory Infection Stated Complaint: Spider Bite/Bodyaches/Fever Related Data Home Medications ?Medication ?Instructions ?Recorded ?Confirmed ?Last Taken ?Type adalimumab-adaz 40 mg/0.8 mL See Rx Instructions subcu bonnie MALLORY 03/02/24 Unknown History subcutaneous pen injector (Hyrimoz Pen) folic acid 1 mg tablet 1 mg PO DAILY 10/24/2405/2503/31/25 History methotrexate 2.5 mg/mL oral 2.5 mg PO WEEKLY 10/24/24 05/25/25 Unknown History solution Allergies Allergy/AdvReac Type Severity Reaction Status Date / Time acetaminophen Allergy Unknown VOMITING Verified 05/25/25 09:12 hydrocodone Allergy Unknown VOMITING Verified 05/25/25 09:12 [facility] Past Medical History Medical History (Updated 04/14/25 @ 22:54 by Ara Carlson DO) Type 2 diabetes mellitus Essential (primary) hypertension Mixed hyperlipidemia Morbid obesity Social History Social History Smoking status: Never smoker Second hand tobacco smoke exposure: No Alcohol intake: never Substance use: never Substance use type: does not use Do You Feel Safe in your Home?: Yes Lack of Transportation: No Lack of Food: Never True Current Housing: I Have Housing Concerned About Future Housing: No Difficulty Paying Gas/Electric Bills: No Difficulty Paying for Meds: No Currently Unemployed: No Education: Decline to Answer Difficulty w/ Childcare or Family Care: No Living arrangements: with family Occupation/Education: occupation Gender identity (if verbalized by the patient): Female Spiritual care concerns: No Course Vital Signs Vital signs: Vital Signs Temperature 97.8 F 05/25/25 09:01 Pulse Rate 123 H 05/25/25 09:01 Respiratory Rate 16 05/25/25 09:01 Blood Pressure 166/88 H 05/25/25 09:01 Pulse Oximetry 98 05/25/25 09:01 Oxygen Delivery Room Air 05/25/25 09:01 Temperature 97.8 F 05/25/25 09:01 Pulse Rate 123 H 05/25/25 09:01 Respiratory Rate 16 05/25/25 09:01 Blood Pressure 166/88 H 05/25/25 09:01 Pulse Oximetry 98 05/25/25 09:01 Oxygen Delivery Room Air 05/25/25 09:01 Discharge Plan Discharge Patient Language: Yakut Prescriptions: No Action Hyrimoz Pen 40 mg/0.8 mL pen injector See Rx Instructions subcut .COMPLEX Rx Instructions: inject two - 80 mg/0.8 mL pens on Day 1; inject one - 80 mg/0.8 mL pen on Day 15 of therapy subcut methotrexate 2.5 mg/mL solution 2.5 mg PO WEEKLY Rx Instructions: take 6 tablets once weekly folic acid 1 mg tablet 1 mg PO DAILY buspirone 10 mg tablet 10 mg PO BID Qty: 180 1RF silver sulfadiazine [Silvadene] 1 % cream 1 applic topical BID Qty: 85 0RF Patient Comments: not taking Rx Instructions: apply a 1.5 mm thickness to burn area twice daily (DME) Comfort EZ Lancets 23 gauge misc See Rx Instructions .ROUTE .MEDSUPPLY Qty: 100 4RF Rx Instructions: Use 1 lancet to check fasting glucose daily lorazepam 0.5 mg tablet 0.5 mg PO TID PRN (Reason: anxiety) Qty: 90 2RF tirzepatide 7.5 mg/0.5 mL pen injector 7.5 mg subcut WEEKLY Qty: 2 0RF Patient Comments: on hold-last took over 1 month ago (DME) blood-glucose meter [Accu-Chek Guide Glucose Meter] Mis See Rx Instructions .Route Qty: 1 0RF Rx Instructions: Use to check BS daily (DME) Accu-Chek Guide test strips Strip See Rx Instructions .Route Qty: 100 1RF Rx Instructions: Use to check BS daily lovastatin 20 mg tablet 20 mg PO DAILY Qty: 90 3RF metformin 500 mg tablet 500 mg PO BID Qty: 180 1RF sertraline 100 mg tablet 200 mg PO DAILY Qty: 180 1RF amlodipine 10 mg tablet 10 mg PO DAILY Qty: 90 1RF Follow-up/Referrals: Ara Carlson DO [Primary Care Provider, Family Practice]
--- NOTE | 2025-05-25 09:17 | ED_ITS ---
HPI - Skin/Abscess/Foreign Bdy General Chief complaint: Upper Respiratory Infection Stated complaint: Spider Bite/Bodyaches/Fever Time Seen by Provider: 05/25/25 09:18 Source: patient and RN notes reviewed Mode of arrival: ambulatory Limitations: dementia History of Present Illness HPI narrative: 49-year-old female presents concern for spider bite that she sustained . She reports she was putting injected on in she felt a bite on her right upper arm and saw spider, out of her jacket. She reports since then it is become more red, swollen, painful. She has been tired, feeling fever rash and having body aches. She has taken Tylenol. MD complaint: other (Redness) Related Data Home Medications ?Medication ?Instructions ?Recorded ?Confirmed ?Last Taken ?Type adalimumab-adaz 40 mg/0.8 mL See Rx Instructions subcu t PetarCOMPLEX 03/02/24 04/14/25 Unknown History subcutaneous pen injector (Hyrimoz Pen) folic acid 1 mg tablet 1 mg PO DAILY 10/24/2405/2503/31/25 History methotrexate 2.5 mg/mL oral 2.5 mg PO WEEKLY 10/24/24 05/25/25 Unknown History solution Allergies Allergy/AdvReac Type Severity Reaction Status Date / Time acetaminophen Allergy Unknown VOMITING Verified 05/25/25 09:12 hydrocodone Allergy Unknown VOMITING Verified 05/25/25 09:12 Review of Systems Review of Systems: CONSTITUTIONAL: Reports malaise, chills, sweats, fatigue EYES: Denies redness, or discharge. ENT: Denies rhinorrhea, congestion, swollen lips, swollen tongue CARDIOVASCULAR: Denies chest pain, palpitations, or edema. RESPIRATORY: Denies cough or dyspnea. GASTROINTESTINAL: Denies abdominal pain, nausea, vomiting SKIN: Reports redness, swelling, tenderness on the right upper arm. Denies purulent drainage, vesicles, bullae, numbness, pain beyond proportion MUSCULOSKELETAL: Denies joint pain. Reports myalgia. NEUROLOGIC: Denies headache. All systems reviewed & are unremarkable except as noted in HPI and below PMFSH Past Medical History Medical History (Updated 05/25/25 @ 09:28 by Olivia Garcia NP) Type 2 diabetes mellitus Essential (primary) hypertension Mixed hyperlipidemia Morbid obesity Social History Social History Smoking status: Never smoker Second hand tobacco smoke exposure: No Alcohol intake: never Substance use: never Substance use type: does not use Do You Feel Safe in your Home?: Yes Lack of Transportation: No Lack of Food: Never True Current Housing: I Have Housing Concerned About Future Housing: No Difficulty Paying Gas/Electric Bills: No Difficulty Paying for Meds: No Currently Unemployed: No Education: Decline to Answer Difficulty w/ Childcare or Family Care: No Living arrangements: with family Occupation/Education: occupation Gender identity (if verbalized by the patient): Female Spiritual care concerns: No Comments At time of signature, agree with nursing past medical, surgical, social and family history. There is no relevant family history pertinent to the presenting complaint Exam Narrative: GENERAL: Well-appearing, well-nourished, and in no acute distress. HEAD: Normocephalic, atraumatic. EYES: PERRLA, conjunctivae clear ENT: Mucous membranes moist. NECK: Supple. No lymphadenopathy CHEST: Clear to auscultation. No respiratory distress. HEART: Regular rate and rhythm. SKIN: Warm, dry. Erythema, induration, tenderness, warmth with sharp margins noted to the right upper arm. No scabs, vesicles, bullae, necrosis, ecchymosis, crepitus noted. NEURO: Alert and oriented x3. PSYCH: Normal mood and affect Course Course Emergency Course: Patient is aware of diagnosis, understands and agrees to treatment plan. Anticipatory guidance given. Patient agrees to follow-up as directed and is aware of reasons to seek care at the emergency department. Portions of this record may have been created with voice recognition software Level of Care: Express Care Visit Vital Signs Vital signs: Vital Signs Temperature 97.8 F 05/25/25 09:01 Pulse Rate 123 H 05/25/25 09:01 Respiratory Rate 16 05/25/25 09:01 Blood Pressure 166/88 H 05/25/25 09:01 Pulse Oximetry 98 05/25/25 09:01 Oxygen Delivery Room Air 05/25/25 09:01 Temperature 97.8 F 05/25/25 09:01 Pulse Rate 123 H 05/25/25 09:01 Respiratory Rate 16 05/25/25 09:01 Blood Pressure 166/88 H 05/25/25 09:01 Pulse Oximetry 98 05/25/25 09:01 Oxygen Delivery Room Air 05/25/25 09:01 Reviewed. MDM - Skin/Abscess/Foreign Bdy MDM Narrative Medical decision making narrative: I evaluated this in the express care. History is obtained from patient who is an independent historian and physical exam was performed.? Available medical records were reviewed. ? Exam findings and relevant testing show no acute concerns or changes; patient is non-toxic appearing and is in no distress. Does not appear at this time to be erythema multiforme, bullous, SJS, TEN; no evidence at this time to suggest RMSF, NSTI, endocarditis or Lyme disease; patient looks well, nontoxic and is tolerating oral intake; no neurologic signs or symptoms; no headache, photophobia or neck pain; afebrile.? Patient does not have history of of penetrating trauma, laceration, blunt trauma, recent surgery, immunosuppression, malignancy, obesity, alcoholism, corticosteroid use.? Discussed the importance of follow-up, patient agrees; question, cellulitis versus necrotizing soft tissue infection versus abscess.?? Patient is appropriate for outpatient treatment and follow-up. Critical Care Time Critical Care Time Critical Care Time: No Discharge Plan Discharge Clinical Impression: Cellulitis Patient Disposition: Home Condition: Stable Instructions: Antibiotic Form, Cellulitis (ED) Additional Instructions: Please follow up with your Primary Care Doctor within 48-72 hours - call for an appointment. Rest and elevate affected area; apply moist heat 3-4 times daily for 10-15 minutes. Take Motrin 600mg every 8 hours with food for pain. Please take Antibiotics as directed. If you experience any worsening redness, swelling, streaking (red lines), fever or chills please go to the ER Patient Language: Nicaraguan Prescriptions: New clindamycin HCl 300 mg capsule 300 mg PO Q8H 7 Days Qty: 21 0RF No Action Hyrimoz Pen 40 mg/0.8 mL pen injector See Rx Instructions subcut .COMPLEX Rx Instructions: inject two - 80 mg/0.8 mL pens on Day 1; inject one - 80 mg/0.8 mL pen on Day 15 of therapy subcut methotrexate 2.5 mg/mL solution 2.5 mg PO WEEKLY Rx Instructions: take 6 tablets once weekly folic acid 1 mg tablet 1 mg PO DAILY buspirone 10 mg tablet 10 mg PO BID Qty: 180 1RF silver sulfadiazine [Silvadene] 1 % cream 1 applic topical BID Qty: 85 0RF Patient Comments: not taking Rx Instructions: apply a 1.5 mm thickness to burn area twice daily (DME) Comfort EZ Lancets 23 gauge misc See Rx Instructions .ROUTE .MEDSUPPLY Qty: 100 4RF Rx Instructions: Use 1 lancet to check fasting glucose daily lorazepam 0.5 mg tablet 0.5 mg PO TID PRN (Reason: anxiety) Qty: 90 2RF tirzepatide 7.5 mg/0.5 mL pen injector 7.5 mg subcut WEEKLY Qty: 2 0RF Patient Comments: on hold-last took over 1 month ago (DME) blood-glucose meter [Accu-Chek Guide Glucose Meter] Misc See Rx Instructions .Route Qty: 1 0RF Rx Instructions: Use to check BS daily (DME) Accu-Chek Guide test strips Strip See Rx Instructions .Route Qty: 100 1RF Rx Instructions: Use to check BS daily lovastatin 20 mg tablet 20 mg PO DAILY Qty: 90 3RF metformin 500 mg tablet 500 mg PO BID Qty: 180 1RF sertraline 100 mg tablet 200 mg PO DAILY Qty: 180 1RF amlodipine 10 mg tablet 10 mg PO DAILY Qty: 90 1RF Follow-up/Referrals: Ara Carlson DO [Primary Care Provider, Family Practice] Time of Disposition: 09:30
[2025-05-25 09:30] LABS: EDCOVIDSCREEN Negative (Negative); EDINFLUASCREEN Negative (Negative); EDINFLUBSCREEN Negative (Negative)
== END 2025-05-25 09:33 | disposition home or self-care (01) ==
PROVIDERS: Emergency Provider Nurse Practitioner; PCP Family Medicine
DX: L03.113 Cellulitis of right upper limb (principal); Z20.822 Contact with and (suspected) exposure to COVID-19; E11.9 Type 2 diabetes mellitus without complications; Z79.84 Long term (current) use of oral hypoglycemic drugs; Z79.85 Long-term (current) use of injectable non-insulin antidiabetic drugs; I10 Essential (primary) hypertension; E78.2 Mixed hyperlipidemia; E66.01 Morbid (severe) obesity due to excess calories; Z68.42 Body mass index [BMI] 45.0-49.9, adult
CPT/HCPCS: 87426; 87804; 99213; G0463

== ENCOUNTER 2025-05-27 09:05 | Emergency (ER) | payer OTHER, SELFPAY ==
[2025-05-27 09:23] VITALS: BP 157/91; PULSE 112; RESP 18; TEMP 36.7; O2SAT 97
--- OUTSIDE RECORDS SUMMARY | 2025-05-27 09:32 | XMS_ITS | Clinical Summary ---
Author Organization [facility] Care Team Providers Care Nut Roaster Name Role Phone Ara Carlson Primary Care Provider + Allergies Active Allergy Reactions Criticality Noted Date Comments Hydrocodone-Acetaminophen Vomiting Low 05/30/2023 Medications amLODIPine (NORVASC) 10 mg tablet Take 1 tablet (10 mg total) by mouth daily 05/18/2023 Active lovastatin (MEVACOR) 20 mg tablet Take 1 tablet (20 mg total) by mouth daily 05/01/2023 Active metFORMIN (GLUCOPHAGE) 500 mg tablet Take 1 tablet (500 mg total) by mouth 2 (two) times a day 04/08/2023 Active sertraline (ZOLOFT) 100 mg tablet Take 2 tablets (200 mg total) by mouth daily 05/10/2023 Active ergocalciferol (VITAMIN D) 50,000 unit capsule TAKE 1 CAPSULE BY MOUTH ONCE WEEKLY 16 capsule 09/23/2023 Active methotrexate 2.5 mg tabletIndicatio ns:Other - non-oncology Take 6 tablets (15 mg total) by mouth once a week Take Tuesday night after dinner, weekly 24 tablet 3 12/08/2023 Active Mounjaro 2.5 mg/0.5 mL pen injector 0.5 mL (2.5 mg total) 03/05/2024 Active folic acid (FOLVITE) 1 mg tablet Take 1 tablet (1 mg total) by mouth daily 90 tablet 1 05/07/2024 Active busPIRone (BUSPAR) 5 mg tablet 08/17/2024 Active lamoTRIgine (LaMICtal) 200 mg tablet Take 1 tablet (200 mg total) by mouth daily Active adalimumab-adaz (Hyrimoz,CF, Pen) 40 mg/0.4 mL pen injector Inject 40 mg under the skin every 14 (fourteen) days 2.4 mL 4 02/18/2025 Active methotrexate 2.5 mg tabletIndicatio ns:Other - non-oncology Take 6 tablets (15 mg total) by mouth once a week 72 tablet 1 02/18/2025 Active folic acid (FOLVITE) 1 mg tablet Take 1 tablet (1 mg total) by mouth daily 30 tablet 3 02/18/2025 Active Active Problems No known active problems Encounters Date Type Department Care Team Description 03/25/2025 Results Follow-Up [facility] at [address] [phone] Lakeisha John NP Urine culture Urine, clean voided 03/23/2025 4:15 PM CDT Office Visit [facility] [address] [phone] Latasha Yancey PA Acute cystitis with hematuria (Primary Dx) 03/23/2025 2:04 PM CDT - 03/23/2025 11:59 PM CD[place] [address] Acute cystitis with hematuria Discharge Disposition: Discharge to home or self care from Last 3 Months Immunizations Immunization Administration Dates Next Due Influenza, Quadrivalent, Fiordaliza l Culture-based MDCK, Preservative Free, Antibiotic Free, Intramuscular 05/30/2023 Medical History Medical History Date Comments Diabetes Anxiety Hypertension Hyperlipidemia Social History Tobacco Use [...] Vaccine (1 of 2) 11/05/1995 Covid-19 Vaccine (4 - season) 2025 07/29/2021, 11/11/2020, 10/13/2020 Influenza Vaccine (#1) 2025 05/30/2023 Procedures Procedure Name Priority Date/Time Associated Diagnosis Comments URINE CULTURE Routine 03/23/2025 2:42 PM CDT Acute cystitis with hematuria POCT URINALYSIS DIPSTICK Routine 03/23/2025 2:05 PM CDT Acute cystitis with hematuria from Last 3 Months Results * (ABNORMAL) Urine culture Urine, clean voided (03/23/2025 2:42 PM CDT) Report Final Report: Greater than or equal to 100,000 colonies/mL of Escherichia coli Plus growth of clinically insignificant bacterial bisi. (.) Comment:Testing performed by : [facility], [address] [place]., [address] Organism ESCHERICHIA COLI MEGGAN Organism PLUS GROWTH OF CLINICALLY INSIGNIFICANT BISI. MEGGAN Urine, clean voided 03/23/2025 2:42 PM CDT 03/23/2025 8:16 PM CDT Narrative MEGGAN ESTEBAN - 03/25/2025 8:24 AM CDT Testing performed by [facility] ([phone]) Organism Antibiotic Method Susceptibility Escherichia coli Ampicillin [...] - GENER AL ORDERABLES Final Result MEGGAN [address] [place] [address] * (ABNORMAL) POCT urinalysis dipstick (03/23/2025 2:05 PM CDT) Color, Urine, POC Yellow Clarity, ur, POC Clear Clear Glucose, ur, POC Negative Negative Bilirubin, ur, POC Negative Negative Ketones, ur, POC Negative Negative Specific Hutch[place], POC 1.025 1.003 - 1.030 Blood, ur, POC Large(A) Negative pH, ur, POC 6.0 5.0 - 8.0 Protein, ur, POC 300.(A) Negative Urobilinogen, urine, POC 1.0 0.2 - 1.0 mg/dL Nitrite, ur, POC Positive(A) Negative Leukocytes, ur, POC Trace(A) Negative Lot Number [id number] Urine 03/23/2025 2:05 PM CDT Latasha VICK POINT OF CARE TEST ORDER AMANDA Final Result from Last 3 Months Insurance Care Teams Nut Roaster Relationship Specialty Start Date End Date Ara Carlson DO [address] [place] [address] [place] [address] PCP - General Family Medicine 05/16/25
--- OUTSIDE RECORDS SUMMARY | 2025-05-27 09:32 | XMS_ITS | Patient Health Record ---
Author Organization [facility] Address [address] [facility] [address] [place] [address] Care Team Providers Care Outpatient Scheduler Name Role Phone Satnam Espinoza Unavailable [phone] Reason For Referral No Information Medications Medication SIG (Take, Route, Frequency, Duration) Notes Start Date End Date Status busPIRone HCl 5 MG Tablet Oral 03/02/2019 Active Levothyroxine Sodium 50 MCG Tablet Oral 03/02/2019 Active Tri-Sprintec 0.18/0.215/0.25 MG-35 MCG Tablet Oral 03/02/2019 Active LORazepam 0.5 MG Tablet Oral 03/02/2019 Active Triamcinolone Acetonide 0.1% Cream External 03/02/2019 Active Sertraline HCl 100 MG Tablet Oral 03/02/2019 Active hydrOXYzine HCl 25 MG Tablet Oral 03/02/2019 Active Lovastatin 20 MG Tablet Oral 03/02/2019 Active amLODIPine Besylate 10 MG Tablet Oral 03/02/2019 Active Social History Social History Additional Details Category Social Info Options Details Migrated Social History Migrated Social History Alcohol Intake: None 06/17/2020,Tobacco Years: Never smoker 06/17/2020,Smoking Status: 0 06/17/2020 Plan Of Treatment No Information Insurance Providers Payer Name Payer Address Payer Phone Subscriber Number Group Number Insured Name Patient Relationship to Insured Coverage Start Date Coverage End Date [employer] [address] [place] [id number] THONY HONEYCUTT Self - patient is the insured
--- OUTSIDE RECORDS SUMMARY | 2025-05-27 09:32 | XMS_ITS | Encounter Summary ---
Author Organization [facility] Healthcare Address [address] [place] [id number] Care Team Providers Care Manager Cardiac Cath Name Role Phone Kyle Edwards DO Primary Care Provider [phone] Ara Carlson DO Primary Care Provider + Encounter Details Date Type Department Care Team ([facility] st Contact Info) Description 03/25/2025 Results Follow-Up [facility] [place] [id number] [place] [phone] Lakeisha John NP [address] [facility] [address] [place] [address] Urine culture Urine, clean voided Social [...] on filedocumented in this encounter Care Teams Manager Cardiac Cath Relationship Specialty Start Date End Date Kyle Edwards DO PCP - General Family Medicine 02/04/23 05/15/25 Ara Carlson DO [address] [place] [address] [place] [address] PCP - General Family Medicine 05/16/25 documented as of this encounter
--- NOTE | 2025-05-27 10:45 | ED.SKABFB ---
HPI - Skin/Abscess/Foreign Bdy General Chief complaint: Skin/Abscess/Foreign Body Stated complaint: right arm spiderbite, diag w/ cellulitis Time Seen by Provider: 05/27/25 10:00 Source: patient Mode of arrival: ambulatory Limitations: no limitations History of Present Illness HPI narrative: Patient is a 49-year-old female who presents to the ED with report of cellulitis to her right arm. Patient reports she was bit by a spider on in her right upper medial arm. She states she did see the spider. It was black and white. Did not appear to be a black or a brown recluse. She did report having some fevers and body aches the next day. She went to an urgent care on Tuesday and was prescribed clindamycin. Related Data Home Medications ?Medication ?Instructions ?Recorded ?Confirmed ?Last Taken ?Type adalimumab-adaz 40 mg/0.8 mL See Rx Instructions subcut .COMPLEX 03/02/24 04/14/25 Unknown History subcutaneous pen injector (Hyrimoz Pen) folic acid 1 mg tablet 1 mg PO DAILY 10/24/24 05/25/25 03/31/25 History methotrexate 2.5 mg/mL oral 2.5 mg PO WEEKLY 10/24/24 05/25/25 Unknown History solution Allergies Allergy/AdvReac Type Severity Reaction Status Date / Time acetaminophen Allergy Unknown VOMITING Verified 05/27/25 09:27 hydrocodone Allergy Unknown VOMITING Verified 05/27/25 09:27 Review of Systems Review of Systems: All systems reviewed & are unremarkable except as noted in HPI. All systems reviewed & are unremarkable except as noted in HPI and below PMFSH Past Medical History Medical History Type 2 diabetes mellitus Essential (primary) hypertension Mixed hyperlipidemia Morbid obesity Social History Social History Smoking status: Never smoker Second hand tobacco smoke exposure: No Alcohol intake: never Substance use: never Substance use type: does not use Do You Feel Safe in your Home?: Yes Lack of Transportation: No Lack of Food: Never True Current Housing: I Have Housing Concerned About Future Housing: No Difficulty Paying Gas/Electric Bills: No Difficulty Paying for Meds: No Currently Unemployed: No Education: Decline to Answer Difficulty w/ Childcare or Family Care: No Living arrangements: with family Occupation/Education: occupation Gender identity (if verbalized by the patient): Female Spiritual care concerns: No Exam Narrative: GENERAL: Well appearing, morbidly obese with BMI of 49.6, non-toxic, in no acute distress. HEAD: Normocephalic, atraumatic. RESPIRATORY: Airway patent, respirations nonlabored. CARDIOVASCULAR: Regular rate and rhythm without murmurs, rubs, or gallops. Radial pulses strong and intact MUSCULOSKELETAL: Moves all extremities. No gross deformities. Erythema to right upper medial arm with extending just slightly past elbow, extending slightly laterally around arm, but is not circumferential. Mildly warm. Minimal induration. No fluctuance. No evidence of abscess. Mild focal tenderness to palpation. No streaking erythema. SKIN: Warm, dry, normal color. NEURO: A&O X3. Speech clear. Cranial nerves II-XII grossly intact. Steady gait. No ataxic movements. PSYCHIATRIC: Appropriate mood and affect. Normal interaction. Course Vital Signs Vital signs: Vital Signs Temperature 98.1 F 05/27/25 09:23 Pulse Rate 112 H 05/27/25 09:23 Respiratory Rate 18 05/27/25 09:23 Blood Pressure 157/91 H 05/27/25 09:23 Pulse Oximetry 97 05/27/25 09:23 Oxygen Delivery Room Air 05/27/25 09:23 Temperature 98.1 F 05/27/25 09:23 Pulse Rate 92 05/27/25 10:58 Respiratory Rate 16 05/27/25 10:58 Blood Pressure 140/86 05/27/25 10:58 Pulse Oximetry 98 05/27/25 10:58 Oxygen Delivery Room Air 05/27/25 09:23 MDM - Skin/Abscess/Foreign Bdy MDM Narrative Medical decision making narrative: Skin was outlined with skin marker. No lymphangitic streaking. It is not involving her entire arm. It is not circumferential. It is not fluctuant. No evidence of systemic infection. Patient has only been on antibiotics for less than 48 hours. Do not feel this is enough time to declare antibiotic failure. Clindamycin should cover for potential pathogens involved. Advised to continue antibiotics, follow-up closely with PCP, warm/cool compresses. Utilized shared decision-making. Patient is in agreement this plan and foregoing blood work at this time. Discussed very strict return precautions. Patient voiced understanding. Discharged in stable condition. Medical Records Attestation: I reviewed the patient's medical records. Discharge Plan Discharge Clinical Impression: Cellulitis of right arm Spider bite Qualifiers: Encounter type: initial encounter Injury intent: accidental or unintentional Qualified Code(s): T63.301A - Toxic effect of unspecified spider venom, accidental (unintentional), initial encounter Patient Disposition: Home Condition: Stable Instructions: Antibiotic Form, Cellulitis (ED), Insect Bite or Sting (ED) Additional Instructions: Continue clindamycin as prescribed. Recommend cool compresses to arm, Zyrtec/Claritin as needed for itching. Tylenol/ibuprofen as needed for pain/discomfort. Follow-up closely with your primary care doctor within the next week for wound recheck. Return to the ED if you experience recurrent fevers/chills, severe pain, streaking redness up or down arm, or any other symptoms of concern. Patient Language: Vietnamese Prescriptions: No Action clindamycin HCl 300 mg capsule 300 mg PO Q8H 7 Days Qty: 21 0RF Hyrimoz Pen 40 mg/0.8 mL pen injector See Rx Instructions subcut .COMPLEX Rx Instructions: inject two - 80 mg/0.8 mL pens on Day 1; inject one - 80 mg/0.8 mL pen on Day 15 of therapy subcut methotrexate 2.5 mg/mL solution 2.5 mg PO WEEKLY Rx Instructions: take 6 tablets once weekly folic acid 1 mg tablet 1 mg PO DAILY buspirone 10 mg tablet 10 mg PO BID Qty: 180 1RF silver sulfadiazine [Silvadene] 1 % cream 1 applic topical BID Qty: 85 0RF Patient Comments: not taking Rx Instructions: apply a 1.5 mm thickness to burn area twice daily (DME) Comfort EZ Lancets 23 gauge misc See Rx Instructions .ROUTE .MEDSUPPLY Qty: 100 4RF Rx Instructions: Use 1 lancet to check fasting glucose daily lorazepam 0.5 mg tablet 0.5 mg PO TID PRN (Reason: anxiety) Qty: 90 2RF tirzepatide 7.5 mg/0.5 mL pen injector 7.5 mg subcut WEEKLY Qty: 2 0RF Patient Comments: on hold-last took over 1 month ago (DME) blood-glucose meter [Accu-Chek Guide Glucose Meter] Misc See Rx Instructions .Route Qty: 1 0RF Rx Instructions: Use to check BS daily (DME) Accu-Chek Guide test strips Strip See Rx Instructions .Route Qty: 100 1RF Rx Instructions: Use to check BS daily lovastatin 20 mg tablet 20 mg PO DAILY Qty: 90 3RF metformin 500 mg tablet 500 mg PO BID Qty: 180 1RF sertraline 100 mg tablet 200 mg PO DAILY Qty: 180 1RF amlodipine 10 mg tablet 10 mg PO DAILY Qty: 90 1RF Follow-up/Referrals: Ara Carlson DO [Primary Care Provider, [facility]] Time of Disposition: 10:48
[2025-05-27 10:58] VITALS: BP 140/86; PULSE 92; RESP 16; O2SAT 98
--- OUTSIDE RECORDS SUMMARY | 2025-05-27 11:27 | XMS_ITS | Clinical Summary ---
Author Organization [facility] HealthCare Care Team Providers Care Drop Hammer Setter Up Name Role Phone Ara Carlson Primary Care [...] Department Care Team Description 03/25/2025 Results Follow-Up [facility] at [address] [phone] Lakeisha John NP Urine culture Urine, clean voided 03/23/2025 4:15 PM CDT Office Visit [facility] at [address] [phone] Latasha Yancey PA Acute cystitis with hematuria (Primary Dx) 03/23/2025 2:04 PM CDT - 03/23/2025 11:59 PM CDT [place] [address] Acute cystitis with hematuria Discharge Disposition: Discharge [...] bacterial bisi. (.) Comment:Testing performed by : [facility], [address] [place]., [address] Organism ESCHERICHIA COLI MEGGAN Organism PLUS GROWTH OF CLINICALLY INSIGNIFICANT BISI. MEGGAN Urine, clean voided 03/23/2025 2:42 PM CDT 03/23/2025 8:16 PM CDT Narrative MEGGAN ESTEBAN - 03/25/2025 8:24 AM CDT Testing performed by [facility] ([phone]) Organism Antibiotic Method Susceptibility Escherichia coli Ampicillin [...] - GENER AL ORDERABLES Final Result MEGGAN [id number] [address] Department [place] [address] * (ABNORMAL) POCT urinalysis dipstick (03/23/2025 2:05 PM CDT) Color, Urine, POC Yellow Clarity, ur, POC Clear Clear Glucose, ur, POC Negative Negative Bilirubin, ur, POC Negative Negative Ketones, ur, POC Negative Negative Specific [place], POC 1.025 1.003 - 1.030 Blood, ur, POC Large(A) Negative pH, ur, POC 6.0 5.0 - 8.0 Protein, ur, POC 300.(A) Negative Urobilinogen, urine, POC 1.0 0.2 - 1.0 mg/dL Nitrite, ur, POC Positive(A) Negative Leukocytes, ur, POC Trace(A) Negative Lot Number [id number] Urine 03/23/2025 2:05 PM CDT Latasha VICK POINT OF CARE TEST ORDER AMANDA Final Result from Last 3 Months Insurance Care Teams Drop Hammer Setter Up Relationship Specialty Start Date End Date Ara Carlson DO [address] [place] [address] [place] [address] PCP - General Family Medicine 05/16/25
--- OUTSIDE RECORDS SUMMARY | 2025-05-27 11:27 | XMS_ITS | Encounter Summary ---
Author Organization [facility] Healthcare Address [address] [place] [id number] Care Team Providers Care Larriman Helper Name Role Phone Kyle Edwards DO Primary Care Provider Ara Carlson DO Primary Care Provider + Encounter Details Date Type Department Care Team ([facility] st Contact Info) Description 03/25/2025 Results Follow-Up [facility] at [id number] [place] [phone] Lakeisha John NP [address] [facility] [address] [place] [address] Urine culture Urine, clean voided [...] on filedocumented in this encounter Care Teams Larriman Helper Relationship Specialty Start Date End Date Kyle Edwards DO PCP - General Family Medicine 02/04/23 05/15/25 Ara Carlson DO [address] [place] [address] [place] [address] PCP - General Family Medicine 05/16/25 documented as of this encounter
== END 2025-05-27 11:07 | disposition home or self-care (01) ==
PROVIDERS: Emergency Provider Physician Assistant; PCP Family Medicine
DX: L03.113 Cellulitis of right upper limb (principal); T63.301A Toxic effect of unspecified spider venom, accidental (unintentional), initial encounter; I10 Essential (primary) hypertension; E11.9 Type 2 diabetes mellitus without complications; E78.2 Mixed hyperlipidemia; E66.01 Morbid (severe) obesity due to excess calories; Z68.42 Body mass index [BMI] 45.0-49.9, adult; Z79.84 Long term (current) use of oral hypoglycemic drugs; Z79.899 Other long term (current) drug therapy; Z79.85 Long-term (current) use of injectable non-insulin antidiabetic drugs
CPT/HCPCS: 99281

== ENCOUNTER 2025-06-23 15:06 | Emergency (ER) | payer OTHER, SELFPAY ==
--- NOTE | ~2025-06-23 | CT_ITS ---
Michelle Bear EXAMINATION: CT abdomen pelvis w con COMPARISON: None HISTORY: Abdominal pain TECHNIQUE: Axial images were obtained through the abdomen, pelvis post administration of IV contrast. Oral contrast was also administered. Coronal reconstruction images were obtained from the axial views. CT scan performed using dose optimization techniques including the following automated exposure control; adjustment of mA and/or kV; use of iterative reconstruction technique. Automatic exposure control was used to reduce radiation dose. Permanent radiation dose record is archived to PACS. FINDINGS: CT abdomen: LUNG BASES: The lung bases are clear. The visualized portions of the heart and pericardium are unremarkable. LIVER: Cirrhotic changes of the liver with nodularity of the liver contours, the liver also appears enlarged. SPLEEN: Spleen is prominent.. KIDNEYS: Right Kidney: Unremarkable. No calculi. No hydronephrosis. Left Kidney: Unremarkable. No calculi. No hydronephrosis ADRENAL GLANDS: Unremarkable. PANCREAS: Unremarkable. GALLBLADDER/BILIARY: Unremarkable. No biliary dilatation. STOMACH AND ESOPHAGUS: Visualized stomach and esophagus within normal limits. BOWEL/MESENTERY: No colitis or diverticulitis. Appendix normal. No stranding within the mesentery. There are no thickened or dilated loops of small bowel. ADENOPATHY/RETROPERITONEUM: No lymphadenopathy. AORTA/VASCULATURE: Normal caliber aorta. FREE FLUID OR FREE AIR: No free fluid.. CT pelvis: SOLID ORGANS/REPRODUCTIVE: The uterus appears enlarged with probable large fibroid 7 x 8 cm which appears partially submucosal, outpatient MRI is recommended. BLADDER: The bladder is decompressed. Mild hyperemia noted of the bladder mucosa. OSSEOUS STRUCTURES: No acute osseous abnormality.No suspicious lesions. OVERLYING SOFT TISSUES: Unremarkable. IMPRESSION: 1. Mild cystitis. Incidental findings above Reviewed, dictated and finalized at location P. ICAL GRADER
[2025-06-23 15:22] VITALS: BP 160/94; PULSE 126; RESP 18; TEMP 38; O2SAT 95
--- NOTE | 2025-06-23 15:22 | ED.ABDPAIN ---
HPI - Abdominal Pain General Chief Complaint: Abdominal Pain Stated Complaint: fever Time Seen by Provider: 06/23/25 15:16 Source: patient Mode of arrival: ambulatory Limitations: no limitations History of Present Illness HPI narrative: 49 years old white female drove herself to the emergency room complaining of fever, body aches, fatigue started 5 days ago, subsequently started having pain at the right abdomen, sharp, stabbing, denies aggravating or relieving factors. Patient denies any upper respiratory symptoms, coughing, shortness of breath, chest pain, back pain, or urinary symptoms. History of diabetes, hypertension, hyperlipidemia, denies any history of abdominal surgery. Patient denies smoking or drinking or using drugs. Patient denies sick contact. Patient had 1 g of Tylenol 5 hour prior to arrival Related Data Home Medications ?Medication ?Instructions ?Recorded ?Confirmed ?Last Taken ?Type folic acid 1 mg tablet 1 mg PO DAILY 10/24/24 06/05/25 03/31/25 History methotrexate 2.5 mg/mL oral 2.5 mg PO WEEKLY 10/24/24 06/05/25 Unknown History solution adalimumab-adaz 40 mg/0.4 mL mg subcut 05/29/25 06/05/25 Unknown History subcutaneous pen injector (Hyrimoz(CF) Pen) norgestimate-ethinyl estradiol tablet PO 05/29/25 06/05/25 Unknown History 0.18mg/0.215mg/0.25mg-0.035mg(28)tablet (Tri-Sprintec (28)) Allergies Allergy/AdvReac Type Severity Reaction Status Date / Time acetaminophen Allergy Unknown VOMITING Verified 06/05/25 09:47 hydrocodone Allergy Unknown VOMITING Verified 06/05/25 09:47 Review of Systems Review of Systems: All systems reviewed & are unremarkable except as noted in HPI and below PMFSH Past Medical History Medical History Essential (primary) hypertension Mixed hyperlipidemia Type 2 diabetes mellitus Morbid obesity Social History Social History Second hand tobacco smoke exposure: No Alcohol intake: never Substance use: never Substance use type: does not use Do You Feel Safe in your Home?: Yes Lack of Transportation: No Lack of Food: Never True Current Housing: I Have Housing Concerned About Future Housing: No Difficulty Paying Gas/Electric Bills: No Difficulty Paying for Meds: No Currently Unemployed: No Education: Decline to Answer Difficulty w/ Childcare or Family Care: No Living arrangements: with family Occupation/Education: occupation Gender identity (if verbalized by the patient): Female Spiritual care concerns: No Exam Narrative: General appearance: Well-developed, well-nourished Skin: Normal color Head: Normocephalic, nontraumatic Eyes: Clear conjunctiva ENT: Oropharynx normal, ears normal, nose normal Neck: Supple, nontender Chest and respiratory: Airway patent, no respiratory distress, no accessory muscle use Heart: Regular rate/rhythm Abdomen: Soft, mild tenderness right upper quadrant with deep palpation, no organomegaly, quiet bowel sounds Vascular: Normal peripheral pulses, normal capillary refill. Musculoskeletal: Normal range of motion, nontender back Neurologic: Alert and oriented ?3, [employer] is normal as tested, no gross motor deficit Course Vital Signs Vital signs: Vital Signs Temperature 38.0 C H 06/23/25 15:22 Pulse Rate 126 H 06/23/25 15:22 Respiratory Rate 18 06/23/25 15:22 Blood Pressure 160/94 H 06/23/25 15:22 Pulse Oximetry 95 06/23/25 15:22 Oxygen Delivery Room Air 06/23/25 15:22 Temperature 38.0 C H 06/23/25 15:22 Pulse Rate 80 06/23/25 18:35 Respiratory Rate 20 06/23/25 18:35 Blood Pressure 123/63 06/23/25 18:35 Pulse Oximetry 100 06/23/25 18:35 Oxygen Delivery Room Air 06/23/25 15:22 MDM - Abdominal Pain MDM Narrative Medical decision making narrative: Patient presents with fever and abdominal pain Vital signs showing blood pressure 160/94, heart rate 126, temperature 38.0? otherwise within normal limit Physical examination showing morbidly obese patient, with slight tenderness right upper quadrant with deep palpation Differential diagnosis include viral infection, cholecystitis, cholangitis, appendicitis, diverticulitis, colitis, urinary tract infection. Blood workup today includes CBC, CMP, lipase showed sodium 129, patient reported not taking any salt whatsoever in her diet +not able to eat over the last few days because of her symptoms. Otherwise insignificant Urinalysis showed trace leukocyte Estrace, RBCs 11-20. Patient tested negative for COVID flu and RSV CT abdomen and pelvis with IV contrast showed finding consistent with cystitis. Patient received 1 g of Rocephin IV prior to discharge Diagnosis acute cystitis Discharged on macrobid The pt was discharged to home.the pt,s condition upon discharge was fair,education was provided to the pt in reference to the final impression,discharge study results,treatment,prognosis and need for follow up . Differential Diagnosis Differential diagnosis: Likely acute appendicitis, diverticulitis and pancreatitis Lab Data Attestation: I reviewed the patient's lab results. 06/23/25 15:37 06/23/25 15:37 Labs: Lab Results 06/23/25 06/23/25 06/23/25 Range/Units 15:37 15:41 15:54 WBC 6.2 (4.5-10.0) K/mm3 RBC 4.64 (4.2-5.4) M/mm3 Hgb 12.1 (12.0-15.0) g/dL Hct 37.1 (37.0-47.0) % MCV 80.0 (80-100) fl MCH 26.1 (26-34) pg MCHC 32.6 (32-36) g/dl RDW 14.0 (11.5-14.5) % Plt Count 139 L (150-375) k/mm3 MPV 10.0 (7.4-10.4) fl Immature Gran % (Auto) 0.5 (0-0.5) % Neut % (Auto) 66.1 (45.5-73.1) % Lymph % (Auto) 19.1 (18.3-44.2) % Cottle % (Auto) 14.1 H (2.6-8.5) % Eos % (Auto) 0.0 (0-4.4) % Baso % (Auto) 0.2 (0.2-1.2) % Lymph # (Auto) 1.18 (0.9-3.2) K/mm3 Cottle # (Auto) 0.9 H (0.1-0.6) K/mm3 Eos # (Auto) 0.0 (0-0.3) K/mm3 Baso # (Auto) 0.0 (0.0-0.1) K/mm3 Abs Immat Gran (auto) 0.03 (0.00-0.031) K/mm3 Absolute Neuts (auto) 4.1 (1.3-6.7) K/mm3 Absolute Nucleated RBC 0.000 (0.0-0.012) K/mm3 Nucleated RBC % 0.0 (0.0-0.2) % Sodium 129 L (137-145) mmol/L Potassium 3.4 (3.4-5.0) mmol/L Chloride 95 L (98-107) mmol/L Carbon Dioxide 25 (22-30) mmol/L Anion Gap 9 (4-12) mmol/L BUN 7 (7-17) mg/dL Creatinine 0.75 (0.7-1.0) mg/dL Estim Creat Clear Calc 102 ml/min Estimated GFR > 60 (59 - ) Glucose 148 H (65-110) mg/dL Calcium 8.4 (8.4-10.2) mg/dL Total Bilirubin 0.7 (0.2-1.3) mg/dL AST 49 H (14-36) U/L ALT 41 H (6-35) U/L Alkaline Phosphatase 121 (38-126) U/L Total Protein 8.0 (6.3-8.2) g/dL Albumin 3.9 (3.5-5.1) g/dL Lipase 65 (23-300) U/L Urine Color Yellow (Yellow) Urine Appearance Clear (Clear) Urine pH 6.5 (5.0-9.0) Ur Specific [place] 1.019 (1.001-1.035) Urine Protein 1+ H (Negative) mg/dL Urine Glucose (UA) Negative (Negative) mg/dL Urine Ketones 1+ H (Negative) mg/dL Ur Blood (Man) Negative (Negative) Urine Nitrate Negative (Negative) Urine Bilirubin Negative (Negative) Urine Urobilinogen 1.0 (<2.0) mg/dL Add Ur Microanalysis Reviewed Leukocyte Esterase Rfl Trace H (Negative) FIFI/UL Urine RBC 11-20 H (0-2) /hpf Urine WBC 0-5 (0-3) /hpf Ur Squamous Epith Cells Few (Few) /hpf Urine Bacteria None seen /hpf Urine Casts 0-2 POC Urine HCG, Qual Negative (Negative) Influenza A (RT-PCR) Negative (Negative) Influenza B (RT-PCR) Negative (Negative) RSV (RT-PCR) Negative (Negative) SARS-CoV-2 RNA (RT-PCR) Negative (Negative) Imaging Data Radiologist's impression: ITS Impressions Abdomen/Pelvis CT 06/23/25 17:01 IMPRESSION: 1. Mild cystitis. Incidental findings above Impressions Abdomen/Pelvis CT 06/23/25 17:01 IMPRESSION: 1. Mild cystitis. Incidental findings above Critical Care Time Critical Care Time Critical Care Time: No Discharge Plan Discharge Clinical Impression: Acute cystitis, Hyponatremia Patient Disposition: Home Condition: Improved Instructions: Antibiotic Form, Urinary Tract Infection in Women (DC) Additional Instructions: Return if symptoms are worsening , call your family physician for appointment, take Tylenol, ibuprofen as as needed for aches and pain, continue home medications. Patient Language: Faroese Prescriptions: New nitrofurantoin monohyd/m-cryst [Macrobid] 100 mg capsule 100 mg PO Q12H 5 Days Qty: 10 0RF Rx Instructions: must administer with a meal/food No Action norgestimate-ethinyl estradiol [Tri-Sprintec (28)] 0.18/0.215/0.25 mg-0.035mg (28) tablet PO adalimumab-adaz [Hyrimoz(CF) Pen] 40 mg/0.4 mL pen injector subcut methotrexate 2.5 mg/mL solution 2.5 mg PO WEEKLY Rx Instructions: take 6 tablets once weekly folic acid 1 mg tablet 1 mg PO DAILY Mounjaro 2.5 mg/0.5 mL pen injector 2.5 mg subcut WEEKLY Qty: 2 0RF Rx Instructions: for 4 weeks (DME) Comfort EZ Lancets 23 gauge misc See Rx Instructions .ROUTE .MEDSUPPLY Qty: 100 4RF Rx Instructions: Use 1 lancet to check fasting glucose daily lorazepam 0.5 mg tablet 0.5 mg PO TID PRN (Reason: anxiety) Qty: 90 2RF (DME) blood-glucose meter [Accu-Chek Guide Glucose Meter] Misc See Rx Instructions .Route Qty: 1 0RF Rx Instructions: Use to check BS daily (DME) Accu-Chek Guide test strips Strip See Rx Instructions .Route Qty: 100 1RF Rx Instructions: Use to check BS daily lovastatin 20 mg tablet 20 mg PO DAILY Qty: 90 3RF amlodipine 10 mg tablet 10 mg PO DAILY Qty: 90 1RF metformin 500 mg tablet 500 mg PO BID Qty: 180 1RF sertraline 100 mg tablet 200 mg PO DAILY Qty: 180 1RF buspirone 10 mg tablet 10 mg PO BID Qty: 180 1RF Follow-up/Referrals: Ara Carlson DO [Primary Care Provider, Family Practice] Stand Alone Forms: Work/School Release IP
[2025-06-23] MEDS: ONDANSETRON INJ 4 MG/2 ML VIAL IV PUSH (15:40)
[2025-06-23] MEDS: SODIUM CHLORIDE 0.9% IV 1,000 ML 999 ML IV CONT (15:40)
[2025-06-23 15:43] LABS: BEDSIDEPREGUCG Negative (Negative)
[2025-06-23 15:44] LABS: Hematocrit 37.1 % (37.0-47.0); Hemoglobin 12.1 g/dL (12.0-15.0); Immature Granulocyte Percent A 0.5 % (0-0.5); Lymphocytes Absolute Auto 1.18 K/mm3 (0.9-3.2); Mean Corpuscular HGB Conc 32.6 g/dl (32-36); Mean Corpuscular Hemoglobin 26.1 pg (26-34); Mean Corpuscular Volume 80.0 fl (80-100); Nucleated Red Blood Cells Absolute Auto 0.000 K/mm3 (0.0-0.012); Nucleated Red Blood Cells Perc 0.0 % (0.0-0.2); Platelet Count Result 139 k/mm3 (150-375); Red Blood Count 4.64 M/mm3 (4.2-5.4); White Blood Count 6.2 K/mm3 (4.5-10.0)
[2025-06-23] MEDS: HYDROmorphone HCL INJ (*CRX) 1 MG/ML SYR 0.5 MG IV PUSH (15:49)
[2025-06-23 15:52] LABS: Add Urine Microscopic? YES; Appearance Urine Clear (Clear); Glucose Urine UA Negative (Negative); Leukocyte Esterase Ur Trace LEU/UL (Negative); Need Manual Microscopic Reviewed; Nitrate Urine Negative (Negative); Non Pathogenic Casts 0-2; Specific Grav Ur 1.019 (1.001-1.035)
[2025-06-23 15:57] LABS: Alanine Aminotransferase 41 U/L (6-35); Albumin Level 3.9 g/dL (3.5-5.1); Alkaline Phosphatase 121 U/L (38-126); Anion Gap 9 mmol/L (4-12); Aspartate Amino Transferase 49 U/L (14-36); Bilirubin,Total 0.7 mg/dL (0.2-1.3); Blood Urea Nitrogen 7 mg/dL (7-17); Calcium 8.4 mg/dL (8.4-10.2); Carbon Dioxide 25 mmol/L (22-30); Chloride 95 mmol/L (98-107); Estimated CRCL calculation 102 ml/min; Estimated Glomerular Filt Rate > 60; Glucose 148 mg/dL (65-110); Lipase 65 U/L (23-300); Potassium 3.4 mmol/L (3.4-5.0); Sodium 129 mmol/L (137-145); Total Protein 8.0 g/dL (6.3-8.2)
[2025-06-23 16:34] LABS: Influenza A QL RT-PCR Negative (Negative); Influenza B QL RT-PCR Negative (Negative); RSV RNA, RT-PCR Negative (Negative); SARS-CoV-2 RNA PCR Negative (Negative)
[2025-06-23] MEDS: cefTRIAXone 1 GM in SODIUM CHLORIDE 0.9% IV 50 ML 100 ML IVPB (17:47)
[2025-06-23] MEDS: KETOROLAC 30 MG/ML VIAL (*BKC) IV PUSH (17:47)
[2025-06-23 18:35] VITALS: BP 123/63; PULSE 80; RESP 20; O2SAT 100
== END 2025-06-23 18:42 | disposition home or self-care (01) ==
PROVIDERS: Physician Assistant; Emergency Provider Emergency Medicine; PCP Family Medicine
DX: N30.00 Acute cystitis without hematuria (principal); E87.1 Hypo-osmolality and hyponatremia; Z20.822 Contact with and (suspected) exposure to COVID-19; I10 Essential (primary) hypertension; E78.2 Mixed hyperlipidemia; E11.9 Type 2 diabetes mellitus without complications; E66.01 Morbid (severe) obesity due to excess calories; Z68.42 Body mass index [BMI] 45.0-49.9, adult; Z79.3 Long term (current) use of hormonal contraceptives; Z79.85 Long-term (current) use of injectable non-insulin antidiabetic drugs; Z79.899 Other long term (current) drug therapy
CPT/HCPCS: 36415; 74177; 80053; 81001; 81025; 83690; 85025; 87637; 96361; 96365; 96375; 99284; J0696; J1171; J1885; J2405; J7030; Q9967

== ENCOUNTER 2025-07-30 16:01 | Outpatient (CLI) | payer OTHER, SELFPAY ==
--- NOTE | ~2025-07-30 | MM_ITS ---
EXAMINATION: MM screening isa BI w jacques HISTORY: Screening TECHNIQUE: Craniocaudal and mediolateral oblique 3-D tomosynthesis images were obtained and synthetic 2-D images were generated. CAD analysis was submitted and interpreted. COMPARISON: Comparison to multiple prior studies sequentially, with oldest reviewed study dated , 02/24/2018 BREAST PARENCHYMAL COMPOSITION: Not Dense: There are scattered areas of fibroglandular density. FINDINGS: There is no evidence of suspicious mass, calcification, or architectural distortion to suggest malignancy in either breast. IMPRESSION: 1. No mammographic evidence of malignancy. 2. Recommend routine screening mammography in one year. BI-RADS Category 1: Negative Reviewed, dictated and finalized at location A. TAPER MACHINE
== END 2025-07-30 16:02 | disposition home or self-care (01) ==
LOC: MICIMG 16:02
PROVIDERS: PCP Family Medicine; Visit Provider Family Medicine
DX: Z12.31 Encounter for screening mammogram for malignant neoplasm of breast (principal)
CPT/HCPCS: 77063; 77067